=== PATIENT | male | born 1970 | race Hispanic/Latino ===

== ENCOUNTER → 2018-05-04 | Day surgery (SDC) | payer OTHER ==
[2018-04-27 11:48] LABS: BASOPHILS # (AUTO) 0.1 (0.0-0.1); BASOPHILS % 0.5 % (0.0-1.0); EOSINOPHILS # (AUTO) 0.2 (0.0-0.4); EOSINOPHILS % 1.8 % (0.0-6.0); HEMATOCRIT 44.2 % (38.2-49.6); HEMOGLOBIN 14.7 g/dL (14.0-18.0); LYMPHOCYTES # (AUTO) 2.4 (1.0-3.2); LYMPHOCYTES % 25.2 % (18.0-39.1); MEAN CORPUSCULAR HEMOGLOBIN 28.7 pg (28-32); MEAN CORPUSCULAR HGB CONC 33.3 g/dL (31-35); MEAN CORPUSCULAR VOLUME 86.2 fL (81-99); MONOCYTES # (AUTO) 0.5 (0.2-0.8); MONOCYTES % 5.5 % (4.4-11.3); NEUTROPHILS # (AUTO) 6.2 (2.1-6.9); NEUTROPHILS % 66.7 % (38.7-80.0); PLATELET COUNT 271 x10e3/uL (140-360); RED BLOOD COUNT 5.13 x10e6/uL (4.3-5.7); RED CELL DISTRIBUTION WIDTH 14.1 % (11.7-14.4)
--- NOTE | 2018-04-27 12:08 | Diagnostic Imaging Report ---
EXAMINATION: CHEST 2 VIEWS INDICATION: ^PREOP ^[id number] ^1120 COMPARISON: None FINDINGS: PA and lateral views TUBES and LINES: None. LUNGS: Low lung volumes. Minimal atelectasis in the left lower lobe. There is no evidence of pneumonia or pulmonary edema. PLEURA: No pleural effusion or pneumothorax. HEART AND MEDIASTINUM: The cardiomediastinal silhouette is unremarkable. BONES AND SOFT TISSUES: No acute osseous lesion. Soft tissues are unremarkable. UPPER ABDOMEN: No free air under the diaphragm. IMPRESSION: No acute thoracic abnormality. Minimal left lower lobe atelectasis. Signed by: Dr. Cassy Pollard M.D. on 04/27/2018 12:05 PM
[2018-04-27 12:22] LABS: ANION GAP 11.2 mmol/L (8-16); BLOOD UREA NITROGEN 16 mg/dL (7-26); BUN/CREATININE RATIO 17 (6-25); CALCIUM 10.1 mg/dL (8.4-10.2); CARBON DIOXIDE 28 mmol/L (22-29); CHLORIDE 99 mmol/L (98-107); CREATININE, SERUM 0.96 mg/dL (0.72-1.25); EST GLOMERULAR FILTRATION RATE > 60 ML/MIN (60-); GLUCOSE 148 mg/dL (74-118); POTASSIUM 4.2 mmol/L (3.5-5.1); SODIUM 134 mmol/L (136-145)
[~2018-05-04] MED LIST: BETAMETHASONE DISODIUM PHOS 6 MG/ML VIAL ONE; BUPIVACAINE HCL 0.5% INJ 30 ML VIAL INJ ONE; CEFAZOLIN SOD 2 GM/D5W 50ML 50 ML IV ONE; DEXAMETHASONE SOD PHOS INJ 4 MG/ML VIAL ONE; FENTANYL CITRATE/PF 100MCG/2 ML INJ ONE; KETOROLAC TROMETHAMINE 30 MG/ML VIAL ONE; LIDOCAINE HCL 1% LOCAL INJ 20 ML VIAL ONE; LOSARTAN POTAS100 MG PO; LOVASTATIN10 MG PO; METFORMIN HCL500 MG PO; MIDAZOLAM HCL 2 MG/2 ML VIAL ONE; MUPIROCIN 2% OINT 22 GM TUBE ONE; ONDANSETRON HCL INJ 2 MG/ML VIAL ONE; PROPOFOL IV EMULSION 10 MG/ML 20 ML VIAL ONE; SEVOFLURANE INHAL SOLN 250 ML PEN BTL ONE
--- OUTSIDE RECORDS SUMMARY | 2018-05-04 05:19 | XMS REPORT ---
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 Allergies, Adverse Reactions, Alerts This patient has no known allergies or adverse reactions. Medications This patient has no known medications. Results Test Description Test Time Test Comments Text Results Atomic Results Result Comments CHEST 2 VIEWS 2018-04-27 12:04:00 [place] [id number] Patient Name: KILEY MO MR #: [id number] : 1970 Age/Sex: 47/M Req #: [id number] Adm Physician: Ordered by: ROSCOE FERNANDEZ DPM Report #: [id number] Location: OR Room/Bed: Procedure: [id number] DX/CHEST 2 VIEWS Exam Date: 04/27/18 Exam Time: 1120 REPORT STATUS: Signed EXAMINATION: CHEST 2 VIEWS INDICATION: PRE OP [id number] COMPARISON: None FINDINGS: PA and lateral views TUBES and LINES: None. LUNGS: Low lung volumes. Minimal atelectasis in the left lower lobe. There is no evidence of pneumonia or pulmonary edema. PLEURA: No pleural effusion or pneumothorax. HEART AND MEDIASTINUM: The cardiomediastinal silhouette is unremarkable. BONES AND SOFT TISSUES: No acute osseous lesion. Soft tissues are unremarkable. UPPER ABDOMEN: No free air under the diaphragm. IMPRESSION: No acute thoracic abnormality. Minimal left lower lobe atelectasis. Signed by: Dr. Ruthie Mcdermott M.D. on 04/27/2018 12:05 PM Dictated By: RUTHIE MCDERMOTT MD [id number] Transcribed By: TATUM on 04/27/181204 COPY TO: ROSCOE FERNANDEZ DPM
[2018-05-04 09:50] VITALS: BP 128/77
--- NOTE | 2018-05-04 09:59 | Diagnostic Imaging Report ---
PROCEDURE:X-RAY LEFT FOOT, TWO VIEWS COMPARISON:None. INDICATIONS:POST LEFT FOOT SURGERY FINDINGS: Overlying cast obscures bony detail. Status post K wire fixation across the fourth toe proximal, mid, and distal phalanges. No displaced fracture or malalignment is noted. Wire overlies the palmar hindfoot soft tissues. CONCLUSION: Post surgical changes status post K wire fixation of the fourth toe. Cast obscures bony detail, partially at the fixation site. No evidence of malalignment or displaced fracture. Dictated by: DEB LONDON M.D. on 05/04/2018 at 10:07 Electronically approved by: DEB LONDON M.D. on 05/04/2018 at 10:07
--- NOTE | 2018-05-04 10:10 | Operative Report ---
DATE OF PROCEDURE: May 04, 2018 PREOPERATIVE DIAGNOSES 1. Painful hallux valgus deformity, left foot. 2. Painful contracted hammertoe, 4th digit, left foot. 3. Painful contracted hammertoe, 5th digit, left foot. 4. Painful plantar calcaneal heel spur with plantar fascitis, left foot. 5. Neuralgia, tibia nerve, left foot. 6. Neuralgia, medial plantar nerve, left foot. 7. Neuralgia, lateral plantar nerve, left foot. POSTOPERATIVE DIAGNOSES 1. Painful hallux valgus deformity, left foot. 2. Painful contracted hammertoe, 4th digit, left foot. 3. Painful contracted hammertoe, 5th digit, left foot. 4. Painful plantar calcaneal heel spur with plantar fascitis, left foot. 5. Neuralgia, tibia nerve, left foot. 6. Neuralgia, medial plantar nerve, left foot. 7. Neuralgia, lateral plantar nerve, left foot. OPERATIVE PROCEDURES 1. Silver bunionectomy, left foot. 2. Arthroplasty, 4th digit, with Estephania wire fixation. 3. Arthroplasty, 5th digit. 4. Resection of plantar calcaneal heel spur. 5. Neurolysis, tibial nerve. 6. Neurolysis, medial plantar nerve. 7. Neurolysis, lateral plantar nerve. 8. Intraoperative use of fluoroscopy. 9. Trigger-point shot of cortisone. 10. Application of posterior splint ANESTHESIA: General. HEMOSTASIS: Pneumatic thigh tourniquet at 350 mmHg. PROCEDURE IN DETAIL: Patient was taken into the operating room and placed on the operating table in the supine position. Following induction of general anesthesia by the anesthesiologist, Webril wraps were placed on the patient's left thigh followed by application of the left thigh tourniquet. The left lower extremity was then prepped and draped in the usual aseptic manner, and the following procedures were then performed: Procedure #1: Silver bunionectomy, left foot. Attention was directed to the dorsomedial aspect of the 1st MPJ where a 6-cm linear incision was performed. Incision was deepened down to the joint capsule. A longitudinal capsulotomy was then performed, exposing a dorsomedial exostosis of 1st metatarsal head. Via the use of an oscillating saw, dorsal and medial exostosis was excised from the operation site in toto. All rough and bony edges were rasped smooth. Procedures #2 and 3: Arthroplasty, 4th and 5th digits, with K-wire fixation of 4th. Attention was then directed to the dorsal aspect of the above-mentioned toes where a 3-cm linear incision was performed. Incision was deepened down to the joint capsule. Transverse capsulotomy was then performed exposing the head of the proximal phalanx. Via the use of an oscillating saw, the heads of the proximal phalanges were excised from the operation site in toto. The 4th toe was still noted to be contracted, so a 0.045 K-wire was introduced up to the metatarsophalangeal joint to achieve proper anatomical reduction. Procedure #4: Resection of plantar calcaneal spur. Attention was then directed to the medial aspect of left heel where a 3-cm linear incision was performed. The incision was deepened down to the plantar fascial level. The plantar fascia was then clearly visualized. The medial one-half of the plantar fascia was cut. The plantar calcaneal spur was then visualized and excised from the operation site. The lateral aspect of the spur was left intact with the attachment of the lateral band of the plantar fascia. Procedures #5, 6 and 7: Neurolysis of the tibial nerve, neurolysis of medial plantar nerve, neurolysis of lateral plantar nerve. Attention was then directed to the medial tarsal canal where a curvilinear incision was performed overlying the tibial nerve down to the alexy pedis posterior to the medial malleolus. Incision was deepened via sharp and blunt dissection being careful to retract any vital structures and ligating superficial vessels as necessary. Once the flexor retinaculum was clearly visualized, it was cut via a meticulous dissection. The tibial nerve was encountered. It was freed from any adhesions. At this point, the tibial nerve was followed down to the alexy pedis. The alexy pedis was cut, and the medial and lateral plantar nerves were visualized. All adhesions were released via blunt dissection. All areas were then copiously flushed with sterile antibiotic solution and suctioned. Procedure #8: Intraoperative use of fluoroscopy was then used to make sure proper alignment was achieved and the spur to the lateral aspect of the calcaneus was visualized and left intact. All areas were then copiously flushed with sterile antibiotic solution and suctioned. Closure was then attained utilizing 3-0 Vicryl, 4-0 Vicryl and 4-0 nylon for capsule, subcutaneous tissue and skin respectively. A TLS drain was inserted to the heel area to drain any type of hematoma formation. Procedure #9: Trigger-point shot of cortisone was then given to the 4th interspace of the left foot, medial tarsal canal and plantar aspect of the left heel for inflammation purposes. Then approximately 15 mL of 0.5% plain Marcaine plus 10 mL of 1% Xylocaine plain were used to achieve local anesthesia to the above-mentioned surgical areas. Sterile dressing was applied. Upon release of the thigh tourniquet, blood hyperemia was noted immediate to all digits of the patient's left foot. Procedure #10: Application of posterior splint. A properly placed posterior splint was then applied keeping the foot at 90 degrees with respect to the leg to try to prevent any type of postop complications. Patient was then transferred from the OR to the recovery room with vital signs stable and neurovascular status intact. No intraoperative complications were encountered. Blood loss from the surgery was minimal. The patient is to remain nonweightbearing with the aid of crutches. Keep his foot elevated. He is to apply an ice pack to the ankle joint area. Job#: [id number]
== END | disposition home or self-care (01) ==
LOC: OR 05:16
PROVIDERS: ATTEND Podiatrist Foot Surgery
DX: M20.12 Hallux valgus (acquired), left foot (principal); M20.42 Other hammer toe(s) (acquired), left foot; M77.32 Calcaneal spur, left foot; G57.52 Tarsal tunnel syndrome, left lower limb; Z01.810 Encounter for preprocedural cardiovascular examination; Z01.812 Encounter for preprocedural laboratory examination; Z01.811 Encounter for preprocedural respiratory examination; I10 Essential (primary) hypertension; E78.5 Hyperlipidemia, unspecified; E11.9 Type 2 diabetes mellitus without complications; Z79.84 Long term (current) use of oral hypoglycemic drugs; G58.8 Other specified mononeuropathies
CPT/HCPCS: 28119; 28285 ×2; 28292; 36415 ×2; 64704; 64708; 71046; 73620; 80048; 82948; 85025; 93005; J0690; J0720; J1100; J1885; J2001; J2250; J2405; J2704; C1713